=== PATIENT | female | born 1990 | race Caucasian/White ===

== ENCOUNTER → 2023-02-27 11:58 | Outpatient (CLI) | payer OTHER, MEDICAID, SELFPAY | PROVIDERS: PCP Nurse Practitioner; Referring Provider Nurse Practitioner Obstetrics & Gynecology; Visit Provider Nurse Practitioner Obstetrics & Gynecology | DX: Z34.91 Encounter for supervision of normal pregnancy, unspecified, first trimester (principal); Z13.1 Encounter for screening for diabetes mellitus; Z3A.26 26 weeks gestation of pregnancy; N39.0 Urinary tract infection, site not specified; Z34.90 Encounter for supervision of normal pregnancy, unspecified, unspecified trimester | CPT/HCPCS: 87086 ==

== ENCOUNTER → 2023-03-04 10:12 | Outpatient (CLI) | payer OTHER, MEDICAID, SELFPAY ==
[2023-03-04 11:38] LABS: Hematocrit 33.1 % (36-46); Hemoglobin 11.5 g/dL (12.0-16.0); Mean Corpuscular HGB Conc 34.7 % (30-36); Mean Corpuscular Hemoglobin 30.5 PG (26-34); Mean Corpuscular Volume 87.7 fL (80-100); Platelet Count 248 X10^3/uL (150-400); Red Blood Cell Count 3.77 X10^6/uL (4.0-5.2); Red Cell Distribution Width 12.7 % (11.6-14.8); White Blood Cell Count 7.9 X10^3/uL (4.5-11.0)
[2023-03-04 12:19] LABS: Glucose Fasting 74 mg/dL (70-100)
[2023-03-04 12:36] LABS: Glucose Tol Interpretation INTERPRETATION
[2023-03-04 13:20] LABS: Glucose 1 Hour 126 mg/dL (70-170)
[2023-03-04 13:20] LABS: Glucose 2 Hour 94 mg/dL (70-140)
== END ==
PROVIDERS: PCP Nurse Practitioner; Referring Provider Nurse Practitioner Obstetrics & Gynecology; Visit Provider Nurse Practitioner Obstetrics & Gynecology
DX: Z34.90 Encounter for supervision of normal pregnancy, unspecified, unspecified trimester (principal); Z3A.26 26 weeks gestation of pregnancy; N39.0 Urinary tract infection, site not specified
CPT/HCPCS: 36415; 82951; 82952; 85027

== ENCOUNTER 2023-04-18 15:04 | Outpatient (CLI) | payer OTHER, MEDICAID, SELFPAY ==
[2023-04-18 15:31] LABS: Appearance Urine UA CLEAR; Bilirubin Urine UA NEGATIVE (NEGATIVE); Color Urine UA YELLOW; Glucose Urine UA NEGATIVE (Negative); Ketones Urine UA NEGATIVE (NEGATIVE); Leukocyte Esterase Urine UA NEGATIVE (NEGATIVE); Nitrite Urine UA NEGATIVE (Negative); Occult Blood Urine UA NEGATIVE (Negative); Protein Urine UA NEGATIVE (Negative); Specific Gravity Urine UA <=1.005 (1.000-1.035); Urobilinogen Urine UA 0.2 E.U./dL (0.2)
[2023-04-18 15:38] LABS: pH Urine UA 5.5 (4.5-8.0)
--- NOTE | 2023-04-18 15:47 | DI.US.S_ITS ---
PROCEDURE: US OB TRANSVAGINAL INDICATIONS: CERVICAL LENGTH TECHNIQUE: Real-time scanning was performed of the cervix, with image documentation. Endovaginal scanning: Yes COMPARISON: None. FINDINGS: Cervix measures 4.8 centimeters, and is closed. IMPRESSION: 4.8 centimeter closed cervix. Dictated by: Judd Pandya M.D. on 04/18/2023 at 16:24 Approved by: Judd Pandya M.D. on 04/18/2023 at 16:25
[2023-04-18 15:50] LABS: Bacteria Urine Few (2-10); Culture Indicated Urine Cult Not Indicated; RBC Urine None Seen (0-5/HPF); Squamous Epithelial Cell Urine None Seen (0-5/HPF); WBC Urine None Seen (0-5/HPF)
--- NOTE | 2023-04-18 15:53 | PM.OBTRLD ---
Visit Information Visit Information Date of evaluation: 04/18/23 Primary OB Provider: Zayra Richardson On-call OB Provider: Zayra Richardson Reason for Evaluation: Yes pre-term labor Comments/Additional reasons for admission: 33YO @ 33wks0 days by 9wk US presents for evaluation of contractions. Has been noticing uncomfortable, mild cramping becoming more regular over the last few days. No vaginal bleeding, LOF or Vital Signs Vital Signs: BP 108/62mmHg, HR 84bpm, T 36.4C Temporal PFSH Medical History (Updated 04/18/23 @ 17:33 by Zayra Richardson CNM) Anxiety Migraine Surgical History (Updated 04/18/23 @ 17:28 by Zayra Richardson CNM) History of arthroscopy of shoulder Family History (Updated 04/18/23 @ 17:29 by Zayra Richardson CNM) Mother Hypertension Social History (Updated 04/18/23 @ 17:30 by Zayra Richardson CNM) marital status: household members: spouse lives independently: Yes education level: college occupational status: employed Review of Systems Review of Systems ROS: Yes All systems reviewed with the patient and are negative except as otherwise documented Exam Vital Signs (past 8 hours): see above Presentation: vertex Objective Imaging cervical length ultrasound: Radiologist's impression: PROCEDURE:? US OB TRANSVAGINAL ? INDICATIONS:? CERVICAL LENGTH ? TECHNIQUE: Real-time scanning was performed of the cervix, with image documentation.? Endovaginal scanning:? Yes ? COMPARISON:? None. ? FINDINGS:? Cervix measures 4.8 centimeters, and is closed. ? IMPRESSION:? 4.8 centimeter closed cervix. Labs Labs: Laboratory Results - last 24 hr 04/18/23 15:15 Urine Color Yellow Urine Appearance Clear Urine pH 5.5 Ur Specific [place] <=1.005 Urine Protein Negative Urine Glucose (UA) Negative Urine Ketones Negative Urine Occult Blood Negative Urine Nitrate Negative Urine Bilirubin Negative Urine Urobilinogen 0.2 Ur Leukocyte Esterase Negative Urine RBC None seen Urine WBC None seen Ur Squamous Epith Cells None seen Urine Bacteria Few (2-10) H Ur Culture Indicated? Cult not indicated Evaluation Evaluation Baseline heart rate: 150 Variability: Moderate (11-25) monitor accelerations: Present Monitor Decelerations: Absent Contraction Frequency (minutes): 1 Uterine Contraction Intensity: Mild Category of Tracing: Reactive Comments: CE deferred Diagnosis, Plan/Disposition Final Diagnosis (1) False labor before 37 completed weeks of gestation during in third trimester, antepartum: Status: Acute Plan/Disposition Plan: Cramping eased while in triage. Reassurance given for NO cervical change from 19wk US. Encouraged rest and hydration and for her to set this as her new baseline and call if cramping strengthens. OB Disposition: home
== END 2023-04-18 16:20 | disposition home or self-care (01) ==
LOC: LABOR 15:26 → OB 04-29 13:17
PROVIDERS: PCP Nurse Practitioner; Referring Provider Nurse Practitioner Obstetrics & Gynecology; Visit Provider Nurse Practitioner Obstetrics & Gynecology
DX: O47.03 False labor before 37 completed weeks of gestation, third trimester (principal); Z3A.33 33 weeks gestation of pregnancy
CPT/HCPCS: 59025; 76817; 81001; G0378; G0379

== ENCOUNTER 2023-04-23 14:52 | Emergency (ER) | payer OTHER, MEDICAID, SELFPAY ==
[2023-04-23 15:00] VITALS: BP 119/71; PULSE 89; RESP 16; TEMP 37.1; O2SAT 99; BMI 28.5
--- NOTE | 2023-04-23 17:42 | DI.US.S_ITS ---
PROCEDURE: US ABDOMEN LIMITED INDICATIONS: RIGHT UPPER QUADRANT PAIN TECHNIQUE: Real-time scanning was performed of the abdominal and retroperitoneal organs, with image documentation. COMPARISON: None. FINDINGS: Liver: Liver is normal in size and homogeneous in echotexture. Gallbladder: No gallbladder wall thickening. At least 3 gallbladder polyps, measuring up to 4 mm in size. Biliary ducts: Intrahepatic bile ducts are non-dilated. Extrahepatic bile duct caliber measures 3 mm. Normal is 6-7 mm or less in diameter, or 10 mm or less post-cholecystectomy. Pancreas: Visualized portions of the pancreas are sonographically normal. Right kidney: Normal size and echogenicity. Mild right-sided pelvocaliectasis. Miscellaneous: No free abdominal fluid. IMPRESSION: No acute gallbladder pathology. Benign gallbladder polyps present, requiring no further follow-up. Right-sided pelvocaliectasis, which can be physiologic in the 3rd trimester . Obstruction is not entirely excluded. Dictated by: Judd Pandya M.D. on 04/23/2023 at 18:23 Approved by: Judd Pandya M.D. on 04/23/2023 at 18:24
[2023-04-23 18:03] LABS: Add Manual Diff / Slide Review NO; Basophils Absolute Auto 0 /uL (0-100); Basophils Percent Auto 0.3 % (0-2); Eosinophils Absolute Auto 100 /uL (0-450); Eosinophils Percent Auto 1.2 % (2-4); Hematocrit 33.2 % (36-46); Hemoglobin 11.4 g/dL (12.0-16.0); Lymphocytes Absolute Auto 1800 /uL (1100-4500); Lymphocytes Percent Auto 22.9 % (25-40); Mean Corpuscular HGB Conc 34.3 % (30-36); Mean Corpuscular Hemoglobin 29.1 PG (26-34); Monocytes Absolute Auto 600 /uL (0-900); Monocytes Percent Auto 8.1 % (3-14); Neutrophils Absolute Auto 5200 /uL (1500-7000); Neutrophils Percent Auto 67.5 % (50-75); Platelet Count 264 X10^3/uL (150-400); Red Blood Cell Count 3.91 X10^6/uL (4.0-5.2); Red Cell Distribution Width 13.2 % (11.6-14.8); White Blood Cell Count 7.8 X10^3/uL (4.5-11.0)
[2023-04-23 18:23] LABS: Alanine Aminotransferase 25 IU/L (<35); Albumin 3.5 g/dL (3.5-5.0); Albumin Globulin Ratio 1.2 (1.0-2.8); Alkaline Phosphatase 85 U/L (38-126); Aspartate Aminotransferase 32 IU/L (14-36); BUN Creatinine Ratio 10.5 (6-22); Bilirubin Total 0.2 mg/dL (0.2-1.3); Blood Urea Nitrogen 6 mg/dL (7-17); Calcium 8.8 mg/dL (8.4-10.2); Carbon Dioxide 24 mmol/L (22-32); Chloride 104 mmol/L (98-107); Estimated Glomerular Filt Rate > 60 mL/min (>60); Glucose 87 mg/dL (70-100); HEMOLYSIS < 15 (0-50); Lipase 41 U/L (23-300); Potassium 3.8 mmol/L (3.4-5.1); Sodium 134 mmol/L (137-145); Total Protein 6.5 g/dL (6.3-8.2)
--- NOTE | 2023-04-23 19:03 | ED_ITS ---
HPI - General Adult General Chief complaint: Shortness of Breath/Dyspnea Stated complaint: R side rib pain Time Seen by Provider: 04/23/23 17:57 Source: patient Mode of arrival: Family Vehicle Limitations: no limitations History of Present Illness HPI narrative: Patient is a 33-year-old female. at approximately 34 weeks EGA who is here for evaluation of right upper quadrant/right rib pain that has been present for the past several weeks but worsening over the past couple days. No vomiting. Is still feeling her baby move. No vaginal bleeding. No loss of fluid. She states that her primary associate field service engineer states that it is most likely stretching because of her . She also states the area inches. There is no rashes. Related Data Allergies Allergy/AdvReac Type Severity Reaction Status Date / Time codeine AdvReac Vomiting Verified 04/23/23 15:07 Review of Systems Constitutional Constitutional: Reports system reviewed and no additional complaints, except as documented Gastrointestinal Gastrointestinal: Reports system reviewed and no additional complaints, except as documented Genitourinary Genitourinary: Reports system reviewed and no additional complaints, except as documented Integumentary/Breasts Skin/Breast: Reports system reviewed and no additional complaints, except as documented Patient History Medical History Anxiety Migraine Surgical History (Updated 04/18/23 @ 17:28 by Zayra Richardson CNM) History of arthroscopy of shoulder Family History (Updated 04/18/23 @ 17:29 by Zayra Richardson CNM) Mother Hypertension Social History marital status: household members: spouse lives independently: Yes education level: college occupational status: employed Smoking Status: Never smoker Smoking Status: Never smoker Substance Use Type: does not use Exam Initial Vital Signs Initial Vital Signs: Vital Signs Temperature 98.8 F 04/23/23 15:00 Pulse Rate 89 04/23/23 15:00 Respiratory Rate 16 04/23/23 15:00 Blood Pressure 119/71 04/23/23 15:00 Pulse Oximetry 99 04/23/23 15:00 Oxygen Delivery Method Room Air 04/23/23 15:00 HENMT Head: normal to inspection and normocephalic Chest Other: Discomfort right lower ribs to palpation Resp Effort & Inspection: normal respiratory effort Auscultation: clear to auscultation bilaterally Cardio Rate: regular rate GI Other: Gravid abdomen, some discomfort in the right upper quadrant over her lower ribs Skin General: no rashes or lesions noted Extrem General: normal to inspection and capillary refill normal Course Orders Ordered: ED Orders 04/23/23 17:42 US abdomen limited Stat 04/23/23 17:53 Complete Blood Count AUTO DIFF Stat Comprehensive Metabolic Panel Stat Lipase Stat Vital Signs Vital signs: Vital Signs - 8 hr 04/23/23 19:12 Pulse Rate 82 Respiratory Rate 18 Blood Pressure 116/68 Pulse Oximetry 99 Oxygen Delivery Method Room Air Medical Decision Making Lab Data Lab results reviewed: Yes I reviewed the patient's lab results. 04/23/23 17:53 04/23/23 17:53 Labs: Lab Results 04/23/23 04/23/23 Range/Units 17:53 17:53 WBC 7.8 (4.5-11.0) X10^3/uL RBC 3.91 L (4.0-5.2) X10^6/uL Hgb 11.4 L (12.0-16.0) g/dL Hct 33.2 L (36-46) % MCV 85.0 (80-100) fL MCH 29.1 (26-34) PG MCHC 34.3 (30-36) % RDW 13.2 (11.6-14.8) % Plt Count 264 (150-400) X10^3/uL Neut % (Auto) 67.5 (50-75) % Lymph % (Auto) 22.9 L (25-40) % [place] % (Auto) 8.1 (3-14) % Eos % (Auto) 1.2 L (2-4) % Baso % (Auto) 0.3 (0-2) % Neut # (Auto) 5200 (9897-4157) /uL Lymph # (Auto) 1800 (5473-4955) /uL [place] # (Auto) 600 (0-900) /uL Eos # (Auto) 100 (0-450) /uL Baso # (Auto) 0 (0-100) /uL Sodium 134 L (137-145) mmol/L Potassium 3.8 (3.4-5.1) mmol/L Chloride 104 (98-107) mmol/L Carbon Dioxide 24 (22-32) mmol/L BUN 6 L (7-17) mg/dL Creatinine 0.57 (0.52-1.04) mg/dL Estimated GFR > 60 (>60) mL/min BUN/Creatinine Ratio 10.5 (6-22) Glucose 87 (70-100) mg/dL Calcium 8.8 (8.4-10.2) mg/dL Total Bilirubin 0.2 (0.2-1.3) mg/dL AST 32 (14-36) IU/L ALT 25 (<35) IU/L Alkaline Phosphatase 85 (38-126) U/L Total Protein 6.5 (6.3-8.2) g/dL Albumin 3.5 (3.5-5.0) g/dL Globulin 3.0 (1.7-4.1) g/dL Albumin/Globulin Ratio 1.2 (1.0-2.8) Lipase 41 (23-300) U/L Imaging Data US - abdomen: Radiologist's Impression: PROCEDURE:? US ABDOMEN LIMITED ? INDICATIONS:? RIGHT UPPER QUADRANT PAIN ? TECHNIQUE:? Real-time scanning was performed of the abdominal and retroperitoneal organs, with image documentation.? ? COMPARISON:? None. ? FINDINGS:? ? Liver:? Liver is normal in size and homogeneous in echotexture.? ? Gallbladder:? No gallbladder wall thickening.? At least 3 gallbladder polyps, measuring up to 4 mm in size.? ? Biliary ducts:? Intrahepatic bile ducts are non-dilated.? Extrahepatic bile duct caliber measures 3 mm.? Normal is 6-7 mm or less in diameter, or 10 mm or less post-cholecystectomy.? ? Pancreas:? Visualized portions of the pancreas are sonographically normal.? ? Right kidney:? Normal size and echogenicity.? Mild right-sided pelvocaliectasis. ? Miscellaneous:? No free abdominal fluid.? ? ? IMPRESSION:? No acute gallbladder pathology.? Benign gallbladder polyps present, requiring no further follow-up. ? Right-sided pelvocaliectasis, which can be physiologic in the 3rd trimester preg yamila.? Obstruction is not entirely excluded. MDM Narrative Medical decision making narrative: Patient's labs and right upper quadrant ultrasound this is unremarkable. She is reproducible pain with palpation to the right lower ribs. No low suspicion for fracture. She is no skin changes over the area. Low suspicion for py elonephritis, gallbladder pathology. Very high suspicion that her symptoms are related to her growing . I did discuss this with her. She is limited to Tylenol given her status. Will have her follow-up with her OB provider. She was given return precautions. Discharge Plan Departure Patient Disposition: Home Clinical Impression: Rib pain on right side, Instructions: Common Discomforts and Bodily Changes During Activity Restrictions/Additional Instructions: I do recommend that you follow all the instructions given to you by your obstetrics provider. Recommend that you contact your office for follow-up. Return to the emergency department for new symptoms. Referrals: Beth Linda ARNP [Primary Care Provider] - Stand Alone Forms: Patient Portal/API, Work Release Note
[2023-04-23 19:12] VITALS: BP 116/68; PULSE 82; RESP 18; O2SAT 99
== END 2023-04-23 19:20 | disposition home or self-care (01) ==
PROVIDERS: Emergency Medicine; Emergency Provider Emergency Medicine; PCP Nurse Practitioner
DX: O26.893 Other specified pregnancy related conditions, third trimester (principal); R10.11 Right upper quadrant pain; R07.81 Pleurodynia; Z3A.34 34 weeks gestation of pregnancy
CPT/HCPCS: 36415; 76705; 80053; 83690; 85025; 99283

== ENCOUNTER 2023-06-08 14:29 | Inpatient (IN) | payer OTHER, MEDICAID, SELFPAY ==
--- NOTE | 2023-06-08 14:54 | PM.OBHP.1 ---
OB HPI Date/Time Date of admission: 06/08/23 Date Patient Seen: 06/08/23 Time Patient Seen: 14:54 History of Present Condition Chief complaint: contractions : 2 Para: 0 Estimated Date of Delivery: 06/06/23 Estimated Gestational Age (weeks): 40w2d Narrative: Galina Wagner is a 33 year old female here in labor. She is 40w3d by 8w0d ultrasound. Contractions started last night after membrane sweep yesterday in clinic. Around 11 am saw bloody show and shortly after that things got more intense. Called approx 1245 to report contractions q 3 minutes, called back at 1400 to say she was ready to come in. Normal care with CNM complicated by migraines, pre-term contractions and rubella non-immune. GBS negative. History of Russ-Danlos syndrome, anxiety. History of Genital HSV. History of Present care: good care, initiated at week # (9), number of visits and pounds weight gain (39) Dating criteria: based on 1st trimester US only Ultrasounds: normal 1st trimester US and normal mid trimester US Obstetrical complications: labor (contractions only) Medical complications: neurological (headaches in ), psychiatric (anxiety, history of sertraline use, no current use of psychiatric medication) and other (Russ-Danos syndrome, Genital HSV with adequate prophylaxis) Preadmission Labs Blood type: O (+) positive -: Antibody screen: negative, Cystic fibrosis screen: unknown, GBS status: negative, HBsAG: negative, HIV: negative and RPR/VDLR: negative -: Rubella: not immune and Varicella: unknown HCT: 33.3 HCAB: negative Narrative: 2 hour GTT: negative (fastin, 1 hr 126, 2 hr 94) GC/CT unknown (not done with NOB labs with prior provider) Prior (ies) History: SAB 10/2016 at 17 weeks Evaluation Evaluation Baseline heart rate: 150 Variability: Moderate (11-25) monitor accelerations: Present Contraction Frequency (minutes): 2 Uterine Contraction Intensity: Strong/Firm Status: Category l Dilation (cm): 8 Effacement (%): 100 Dilation: >/=5 cm Effacement: >/=80% station: -1 Position of cervix: anterior Consistency: soft Ray score: 12 Comments: Bulging bag of water noted on SVE PFSH Medical History (Updated 06/08/23 @ 15:12 by Opal Menendez CNM, AMADEO) Pilonidal cyst Genital herpes Russ-Danlos syndrome Anxiety Migraine Surgical History History of arthroscopy of shoulder Family History (Updated 04/18/23 @ 17:29 by Zayra Richardson CNM) Mother Hypertension Social History marital status: household members: spouse lives independently: Yes education level: college occupational status: employed Smoking Status: Never smoker Meds Home Medications and Allergies Allergies Allergy/AdvReac Type Severity Reaction Status Date / Time codeine AdvReac Vomiting Verified 04/23/23 15:07 Review of Systems Review of Systems Narrative: Negative except as mentioned in HPI OB Exam Vital signs Blood Pressure: 128/75 Pulse Rate: 94 Respiratory Rate: 18 Temperature: 98.4 F Narrative Exam Narrative: SpO2 100% Resp Effort & Inspection: normal respiratory effort and able to speak in complete sentences Auscultation: clear to auscultation bilaterally Cardio Rate: regular rate Rhythm: regular rhythm Heart Sounds: S1 normal, S2 normal and normal, physiologic split S2 Objective Labs 06/08/23 15:22 Assessment and Plan Assessment and Plan Assessment and Plan narrative: at 40w2 days Active labor FHR Cat 2 Intact membranes GBS negative O pos blood type Admit to L&D Reviewed plan; patient now desires IV and epidural, so anesthesia called to house Admission labs and usual labor care Anticipate
[2023-06-08] MEDS: LACTATED RINGERS 1,000 ML 100 ML IV ×2 (15:00→16:16)
[2023-06-08 15:19] VITALS: BP 128/75; PULSE 94; RESP 18
[2023-06-08 15:44] LABS: Add Manual Diff / Slide Review NO; Basophils Absolute Auto 0 /uL (0-100); Basophils Percent Auto 0.2 % (0-2); Eosinophils Absolute Auto 0 /uL (0-450); Eosinophils Percent Auto 0.2 % (2-4); Hematocrit 36.7 % (36-46); Hemoglobin 12.3 g/dL (12.0-16.0); Lymphocytes Absolute Auto 1500 /uL (1100-4500); Lymphocytes Percent Auto 10.8 % (25-40); Mean Corpuscular HGB Conc 33.5 % (30-36); Mean Corpuscular Hemoglobin 28.8 PG (26-34); Mean Corpuscular Volume 85.9 fL (80-100); Monocytes Absolute Auto 900 /uL (0-900); Monocytes Percent Auto 6.3 % (3-14); Neutrophils Absolute Auto 11300 /uL (1500-7000); Neutrophils Percent Auto 82.5 % (50-75); Platelet Count 269 X10^3/uL (150-400); Red Blood Cell Count 4.27 X10^6/uL (4.0-5.2); Red Cell Distribution Width 14.3 % (11.6-14.8); White Blood Cell Count 13.8 X10^3/uL (4.5-11.0)
--- NOTE | 2023-06-08 16:16 | PM.AN.REGBLK ---
Regional Block Pre-procedure Procedure: Continuous Lumbar Epidural for L&D Attending OB provider: Opal Menendez PMH/ROS narrative: 40w2d in labor for vaginal delivery. Russ-Danlos syndrome, anxiety. PSH/Anesthesia history narrative: Rotator cuff; hx PONV Exam narrative: RRR, CTAB. MP3, neck and jaw good ROM ASA Class: II Labs: Hct 36.7 % (36-46) 06/08/23 15:22 Plt Count 269 X10^3/uL (150-400) 06/08/23 15:22 Medications: Current Medications Generic Name Dose Route Start Last Admin Trade Name Freq PRN Reason Stop Dose Admin Acetaminophen 650 mg 06/08/23 14:52 Acetaminophen 325 Mg Tablet PO Q6H PRN Fever/Mild Pain (1-3) Albuterol/Ipratropium 3 ml 06/08/23 16:14 Albuterol/Ipratropium 3 Ml Ampul INH Q1H PRN Shortness Of Breath Calcium Carbonate 1,000 mg 06/08/23 14:52 Calcium Carbonate 500 Mg Tab PO Q4HR PRN Dyspepsia Carboprost Tromethamine 250 mcg 06/08/23 14:52 Carboprost 250 Mcg/Ml Ampul IM Q90M PRN Bleeding Fentanyl 100 mcg 06/08/23 14:52 Fentanyl 100 Mcg/2 Ml Inj IV Q1H PRN Pain, Severe (7-10) Hydroxyzine HCl 25 mg 06/08/23 16:14 Hydroxyzine 50 Mg/Ml Inj IM Q4HR PRN spasm or agitation Oxytocin/Lactated Ringer's 30 unit in 500 mls @ 200 mls/hr 06/08/23 14:52 Oxytocin Premix IV CONT PRN Bleeding Protocol Tranexamic Acid 1,000 mg/ 100 mls @ 200 mls/hr 06/08/23 14:52 Sodium Chloride IV NOW PRN Bleeding Lactated Ringer's 1,000 mls @ 100 mls/hr 06/08/23 15:00 06/08/23 15:00 Lactated Ringers IV 100 mls/hr CONT JHONNY Administration Lactated Ringer's 1,000 mls @ 100 mls/hr 06/08/23 16:15 Lactated Ringers IV CONT JHONNY FENT 2MCG/ML BUPIV 0.1% EPI 200 mcg in 100 mls @ 6 mls/hr 06/08/23 16:15 Fentanyl/Bupiv/Ns 2mcg/Ml - 0.1% EPIDURAL CONT JHONNY Lidocaine HCl 20 ml 06/08/23 14:52 Lidocaine 1% 20 Ml INJ INTRA-OP PRN Post Delivery Methylergonovine Maleate 0.2 mg 06/08/23 14:52 Methylergonovine 0.2 Mg Tablet PO Q6HR PRN Heavy Bleeding Methylergonovine Maleate 0.2 mg 06/08/23 14:52 Methylergonovine 0.2 Mg/Ml Vial IM NOW PRN Bleeding Misoprostol 800 mcg 06/08/23 14:52 Misoprostol 200 Mcg Tablet VA NOW PRN Bleeding Misoprostol 400 mcg 06/08/23 14:52 Misoprostol 200 Mcg Tablet SL NOW PRN Bleeding Naloxone HCl 0.2 mg 06/08/23 14:52 Naloxone 0.4 Mg/Ml Vial IV Q2MIN PRN Opiate Reversal Naloxone HCl 0.4 mg 06/08/23 16:14 Naloxone 0.4 Mg/Ml Vial IV Q2MIN PRN Opiate Reversal Ondansetron HCl 8 mg 06/08/23 14:52 Ondansetron 4 Mg/2 Ml Inj IV Q8H PRN Nausea And Vomiting Oxytocin 10 unit 06/08/23 14:52 Oxytocin 10 Unit/Ml Vial IM NOW PRN Bleeding Allergies: Allergies Allergy/AdvReac Type Severity Reaction Status Date / Time codeine AdvReac Vomiting Verified 04/23/23 15:07 Procedure Insertion date: 06/08/23 Insertion time: 15:43 Interspace: L3-4 Patient position: sitting Needle: 17 gauge Tuohy Loss of resistance with: saline DAVEY at (cm): 6 Catheter placed at SKIN (cm): 12 Catheter in SPACE (cm): 6 Insertion: Yes Paresthesia with insertion Initial Medications TEST DOSE time: 15:45 BOLUS DOSE time: 15:46 BOLUS DOSE (mL): 3 BOLUS DOSE med: 0.125% bupivacaine with fentanyl 10 mcg/mL Infusion Initial rate (mL/hr): 10 Subsequent interventions: Clinicial bolus 16:03, 5 ml of above due to left-sided pain. Pain now down to 4/10 at 16:22 and pt is smiling, resting comfortably. Post-procedure Anesthesia time START: 15:28 Anesthesia time END: 16:06 Post-procedure Anesthesia Assessment: Yes CV function: HR/BP stable, Yes Resp function: RR/sat/airway adequate, Yes Post-op hydration adequate, Yes Nausea & vomiting absent, Yes Temperature > 36 C and Yes Mental status appropriate
[2023-06-08 16:26] VITALS: TEMP 36.9
[2023-06-08 16:45] VITALS: BP 128/75
--- NOTE | 2023-06-08 17:08 | PM.OBPNLAB ---
Date/Time Date Patient Seen: 06/08/23 Time Patient Seen: 16:32 Pain Control Pain control: epidural Comments: Galina is resting comfortably on her right side with her epidural working well. BP: 104/60 HR: 85bpm T: 36.9C Sp02: 100% Pelvic Exam Dilation (cm): 8 Effacement (%): 100 station: -1 Amniotic membrane status: Bulging Comments: Previous cervical exam with patient in hands and knees position, bag very bulgy. With change in maternal position to supine, less tension noted on bag. Contractions Contractions on admission: regular Monitor mode: External Contraction frequency (min): 2 (1.5-3) Contraction duration (min): 1 (1-2) Contraction pattern: Regular Contraction intensity: Strong/Firm Status status: Category ll Heart Rate Baseline: 155 Monitor Accelerations: Absent Monitor Decelerations: Variable Monitor Variability: Moderate Assessment and Plan Assessment: active labor Plan: continuous present management Comments: A: 33yo at 40 weeks 2 days Active labor GBS negative, no signs of infection O positive Epidural working well Membranes intact FHR Cat 2 P: Continue expectant management Alternate position changes and rest Recheck in 2-4 hours or sooner PRN Anticipate NSVB
[2023-06-08] MEDS: CALCIUM CARBONATE 500 MG TAB 1000 MG PO (20:19)
[2023-06-08] MEDS: FENT 2MCG/ML BUPIV 0.1% EPI 200 MCG/100 ML PLAST..BAG 6 MCG EPIDURAL (20:38)
--- NOTE | 2023-06-08 20:54 | PM.OBPNLAB ---
Date/Time Date Patient Seen: 06/08/23 Time Patient Seen: 20:45 Pain Control Pain control: tolerating well and epidural Comments: Galina is resting on her R side with the peanut ball, epidural is working well; she is feeling uncomfortable rectal pressure with contractions. BP: 114/55 mmHg HR: 78 bpm Sp02: 96% T: 36.7C Pelvic Exam Dilation (cm): 9.5 Effacement (%): 100 station: 0 Amniotic membrane status: Bulging Contractions Monitor mode: External Contraction frequency (min): 3 Contraction duration (min): 1 Contraction pattern: Regular Contraction intensity: Strong/Firm Status status: Category l Heart Rate Baseline: 145 Monitor Accelerations: Absent Monitor Decelerations: Absent Monitor Variability: Moderate Assessment and Plan Assessment: active labor Comments: A: 33yo at 40 weeks 2 days Active labor GBS negative, no signs of infection Membranes intact Epidural working well FHR Cat 1 P: Expectant management Discussed option of AROM for augmentation, Galina likes the plan of laboring down for an hour or two first Position change frequently with peanut ball Recheck in 2-4hrs or sooner PRN Anticipate NSVB
--- NOTE | 2023-06-08 23:14 | PM.OBPNLAB ---
Date/Time Date Patient Seen: 06/08/23 Time Patient Seen: 23:00 Pain Control Pain control: epidural Comments: Galina is resting comfortably on her L side with the peanut ball. Continues to feel intermittent rectal pressure with contractions. BP: 118/75 HR: 87 bpm Sp02: 96% Pelvic Exam Dilation (cm): 9 (on maternal L ) Effacement (%): 100 station: 0 Amniotic membrane status: Bulging (intact) Contractions Monitor mode: External Contraction frequency (min): 3 Contraction duration (min): 1 Contraction pattern: Regular Contraction intensity: Strong/Firm Status status: Category l Heart Rate Baseline: 150 Monitor Accelerations: Absent Monitor Decelerations: Absent Monitor Variability: Moderate Assessment and Plan Assessment: active labor Comments: A: 33yo at 40 weeks 2 days Active labor GBS negative, no signs of infection Epidural working well Membranes intact FHR Cat 1 P: Position in throne, knees together Recheck in 1-2hrs or sooner PRN Consider augmentation if no/minimal change at next check Anticipate NSVB
--- NOTE | 2023-06-09 01:13 | P.PCNOB_ITS ---
Events: Other (pre-term contractions) Labor & Delivery Delivery date: 06/09/23 Intrapartal Events: None Cervical ripening method: none Induction method: none Delivery monitor: external FHT Route of delivery: Episiotomy description: None L&D Laceration Description: Labial (R) Delivery repair: vicryl Quantitative Blood Loss: 411 Anesthesia Type: Epidural and Local (for R labial repair) Narrative: Chaces labor progressed slowly after she got an epidural, however she continued to make change without augmentation. There were no signs of infections and no antibiotics given. CNM and SNM were called to the room after Galina SROMed clear fluid at 2340 and felt an intense urge to push. She pushed effectively for a short second stage; FHR was Cat 2 throughout second stage. NSVB of baby ha Sharif at 00:24 in HERMELINDA position caught by FOB Toño and ROSSY, with no nuchal cord, an easy delivery of shoulders, and terminal meconium. Baby was placed on Galina's abdomen, where she was dried with warm blankets, Apgars 9/9. They remained skin to skin while the cord was double clamped by SNM and cut by FOB at 12 minutes of life after it had stopped pulsing. Cord blood collected per unit protocol. Bleeding noted while waiting for delivery of the placenta; Galina consents to IV Pitocin, 30U in 500ml LR started per protocol. Gentle cord traction and maternal effort led to the spontaneous, Schultze, delivery of an apparently intact placenta with calcifications, membranes and 3 vessel cord. Fundus firm, midline at U. Perineum inspected and found to be intact. R labial tear repaired in the usual fashion under epidural and 1% lidocaine for anesthesia. Blood loss measured is 411 mL. Mom and baby left stable, initiating . Galina and Toño are thrilled to meet their baby ha Sharif Michael. Opal CHILDS CNM, IBCLC ROSSY [place] Baby 1: gender: Female Presentation: vertex Position: Left Occiput Anterior Placenta delivery description: Spontaneous (Schultze) Cord Vessel Description: 3 Vessels score (1 min): 9 score (5 min): 9 weight: 3.002 kg Plan for aftercare: Routine care
[2023-06-09] MEDS: LIDOCAINE 1% 20 ML INJ (01:36)
[2023-06-09] MEDS: OXYTOCIN PREMIX 30 UNIT/500 ML PLAST..BAG 200 UNIT IV (01:40)
[2023-06-09] MEDS: KETOROLAC 30 MG/ML VIAL IV (01:45)
[2023-06-09] MEDS: DERMOPLAST SPRAY 20% 60 ML 1 SPRAY TOP (01:45)
[2023-06-09] MEDS: ACETAMINOPHEN 325 MG TABLET 650 MG PO ×3 (01:45→17:21)
[2023-06-09] MEDS: IBUPROFEN 600 MG TABLET PO ×2 (07:39→15:24)
[2023-06-09] MEDS: CALCIUM CARBONATE 500 MG TAB PO (08:29)
--- NOTE | 2023-06-09 15:08 | PM.OBDS.1 ---
Discharge Providers Provider Date of admission: 06/08/23 14:29 Discharge Date: 06/09/23 Primary care physician: AMADEO Salazar Consults: 06/08/23 14:52 Consult to Anesthesiology Urgent Comment: Consulting Provider: Anesthesiologist Reason for consultation: Epidural Has provider been notified: No 06/10/23 01:11 Consult to Analytical Lab Technician Routine Comment: Discharge provider: Opal Menendez CNM, ARNP Summary Hospital Course Date Patient Seen: 06/09/23 Time Patient Seen: 15:08 Diagnoses: O09.93, Z3A.40, Z373.0, O80, Z39.1 Hospital Course: Galina arrived in active labor. Got epidural, rested well. Prolonged active phase followed by short 2nd stage and NSVB of healthy baby girl. QBL 411 mL. . Well supported by her , Toño. Normal course including eating, voiding, stooling, movement. Doing well, desire going home tonight prior to 24 hours. Peripartum Data Infant Delivery Method: Natural Vaginal Laceration Description: Labial Episiotomy description: None Procedures: Labial laceration repaired with 3-0 vicryl in usual fashion. [place] 1: Gender: Female Disposition of : home Discharge Diagnosis (1) 40 weeks gestation of : Status: Acute (2) Breast feeding status of mother: Status: Acute (3) Obstetric labial laceration, delivered, current hospitalization: Status: Acute (4) Delivery outcome of single liveborn infant: Start Date: 06/09/23 Start Time: 00:24 Status: Acute Status at Discharge Cognitive/behavioral status at discharge: oriented and at baseline, oriented Functional status at discharge: independent ambulation Overall status at discharge: patient is progressing back to baseline Time Spent with Patient Time attestation: Objective Labs 06/08/23 15:22 Labs: Laboratory Results - last 24 hr 06/08/23 15:22 WBC 13.8 H RBC 4.27 Hgb 12.3 Hct 36.7 MCV 85.9 MCH 28.8 MCHC 33.5 RDW 14.3 Plt Count 269 Neut % (Auto) 82.5 H Lymph % (Auto) 10.[address] [place] % (Auto) 6.3 Eos % (Auto) 0.2 L Baso % (Auto) 0.2 Neut # (Auto) 60708 H Lymph # (Auto) [address] [place] # (Auto) 900 Eos # (Auto) 0 Baso # (Auto) 0 Blood Type O Positive Antibody Screen Negative Exam Vital Signs (past 8 hours): BP: 100/68 HR: 78 bpm RR: 17/min T: 98 F, temporal Sp02: 99% Const General: healthy appearing and comfortable Resp Effort & Inspection: normal respiratory effort GI Inspection: normal to inspection Other: Fundus firm at U, midline. Lochia scant Perineum intact with minimal edema Skin General: no rashes or lesions noted Neuro General: patient alert, patient awake and patient oriented x3 Speech: speech normal Extrem General: normal to inspection and full ROM Psych Appearance: grossly normal Mental Status: mental status grossly normal Speech and Movement: speech and movement normal Mood: congruent mood Affect: normal affect Discharge Plan Discharge Plan Patient Disposition: Home Discharge orders & Medications Prescriptions: Discontinued acyclovir 400 mg tablet 400 mg PO 3XD Follow up/Referrals: Beth Linda ARNP [Primary Care Provider] - Opal Menendez, AMADEO PEREZ [[employer]] - 2 Weeks (and 6 weeks as scheduled; see e-mail for details.) Diet/Activity/Treatments Diet: Diet as Tolerated and Regular Diet comment: Increase fiber and fluid for best healing and stooling Activity: Low castellanos for 2 weeks Cold/Heat Therapy: as needed Skin/Wound/Dressing Care Skin care: usual care Report to your healthcare provider any signs of infection, such as:: chills, fever, unusual drainage and unusual redness Visit Report/Discharge Packet Stand Alone Forms: Discharge: Care, Patient Portal/API Discharge Data Primary Care Provider: Beth Linda Attending Provider: Opal Menendez Admit Date/Time: 06/08/23 14:29
== END 2023-06-09 20:05 | disposition home or self-care (01) | DRG 807 ==
PROVIDERS: Admitting Provider Advanced Practice Midwife; PCP Nurse Practitioner; Referring Provider Advanced Practice Midwife; Visit Provider Advanced Practice Midwife
DX: O98.32 Other infections with a predominantly sexual mode of transmission complicating childbirth (principal); Z37.0 Single live birth; A60.9 Anogenital herpesviral infection, unspecified; Z3A.40 40 weeks gestation of pregnancy; O76 Abnormality in fetal heart rate and rhythm complicating labor and delivery; O70.0 First degree perineal laceration during delivery
CPT/HCPCS: 36415; 59050; 85025; 86850; 86900; 86901; G0378; G0379; J1885; J2590